=== PATIENT | male | born 1945 | race Caucasian/White ===

== ENCOUNTER → 2017-07-28 | Outpatient (CLI) | payer MEDICARE ==
[~2017-07-28] MED LIST: AMINOPHYLLINE INJ 500 MG/20 ML VIAL IV ONE; AMOX500T PO; ASPI81TA82 PO; CETI10CH PO; CITA10SO PO; FISH1000 PO; GEMF600 PO; GINK40TA2; GLUCTAB PO; HYDR-3533 PO; LEVO175T21 PO; NITR0.4S SL; PLAV75TA PO; REGADENOSON INJ 0.4 MG/5 ML SYR ONE; ROBA750T3 PO; TAB-TAB PO; TERA2CAP3 PO; VITA-13 PO; VITA500T10 PO; WELL200T PO; [UNRECOGNIZED DRUG - OTHER] PO
--- NOTE | 2017-07-28 12:58 | RADRPT ---
EXAM DATE/TIME: 07/28/2017 10:15 [place] COMPARISON: No previous studies available for comparison. INDICATIONS : Substernal chest pain. Angina. Coronary artery disease. DOSE: 30 mCi Tc99m Sestamibi at stress. 11.8 mCi Tc99m Sestamibi at rest. 0.4 mg Lexiscan STRESS SYMPTOMS: Dyspnea. MEDICATIONS: 1.) 100 mg Aminophylline IV EJECTION FRACTION: 51% MEDICAL HISTORY : Myocardial infarction. Gastroesophageal reflux disease. Diabetes mellitus type 2. Hypertension. SURGICAL HISTORY : Coronary artery stent. Appendectomy. Cholecystectomy. ENCOUNTER: Initial ACUITY: 1 day PAIN SCALE: 4/10 LOCATION: Substernal chest TECHNIQUE: The patient underwent pharmacologic stress with infusion of prescribed dose. Continuous ECG tracing was monitored during stress. Gated SPECT imaging was performed after stress and conventional SPECT i maging was performed at rest. The examination was performed on a SPECT/CT scanner, both attenuation and non-corrected datasets were reviewed. FINDINGS: DISTRIBUTION: The maximum perfused segment at stress is in the lateral wall. PERFUSION STUDY: The pattern of perfusion at stress reveals a fixed defect in the anterior wall extending to the apex. GATED STUDY: There is intact wall motion and thickening without hypokinetic or dyskinetic segments. CONCLUSION: 1. Fixed perfusion defect in the anterior wall and apical region characteristic of prior myocardial i nfarction. No significant reversibility to suggest ischemia. 2. Ejection fraction within normal limits, in the low-normal range. RISK CATEGORY: Intermediate (1-3% Annual Mortality Rate) Krunal Cisneros MD on July 28, 2017 at 12:54 Board Certified Radiologist. This report was verified electronically.
== END ==
LOC: HRAD 09:43
PROVIDERS: ATTEND Internal Medicine
DX: I25.10 Atherosclerotic heart disease of native coronary artery without angina pectoris (principal); R07.9 Chest pain, unspecified; I25.2 Old myocardial infarction
CPT/HCPCS: 78452; 93017; A9500; J0280; J2785; A9502